=== PATIENT | female | born 1960 | race Caucasian/White ===

== ENCOUNTER 2016-09-24 16:32 | Emergency (ER) | payer SELFPAY ==
--- NOTE | 2016-09-24 18:47 | Diagnostic Imaging Report ---
[facility] [address] [facility] [address] [place], [place]. [address] Report Submission Date: Sep 24, 2016 6:45:37 PM CDT Patient Study Name: BJORN PATLE Date: Sep 24, 2016 6:08:55 PM CDT Modality Type: CT\SR Gender: F Description: CT CHEST W/O CONTRAST : 62 Institution: [facility] Physician: BOBY HERNANDEZ - BINDU Examination: CT chest History: Trauma Comparison exams: None available Technique: CT chest without contrast protocol Findings: Lung pleura parenchyma and pulmonary vascularity are without irregularity. No evidence for lesion. Anterior mediastinum and bhanu are without gross mass or pathologic adenopathy: though sensitivity is reduced on a noncontrast exam. Cardiac silhouette not enlarged. Thoracic aorta without enlargement origins and fluid collection. With no evidence for extrapleural air. Lower neck structures, upper abdominal organs, and osseous structures are without gross abnormality. Impression: No acute parenchymal process. No evidence for pneumothorax or thoracic aortic abnormality. Electronically signed on Sep 24, 2016 6:45:37 PM CDT by: Mihai FAUST
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
[2016-09-24 19:36] VITALS: BP 132/67
== END 2016-09-24 19:21 | disposition home or self-care (01) ==
LOC: ED 16:32
DX: S30.1XXD Contusion of abdominal wall, subsequent encounter (principal); V43.92XD Unspecified car occupant injured in collision with other type car in traffic accident, subsequent encounter; X58.XXXA Exposure to other specified factors, initial encounter; Y93.9 Activity, unspecified; Y99.9 Unspecified external cause status; M54.2 Cervicalgia; R51 Headache
CPT/HCPCS: 71250; 99283